=== PATIENT | male | born 1955 ===

== ENCOUNTER 2024-01-22 10:08 | Day surgery (SDC) | payer MEDICARE, OTHER ==
[~2024-01-22] VITALS: Ht 152.4 cm; Wt 51.2 kg
[~2024-01-22 10:08] MED LIST: Aspir 8181 MG; Balanced Salt Epinephrine Irrigation Solution 500 mL IR SCH; CYAN500 PO; HYDROCHLOROTHIAZIDE; LATANOPROST2.5 M3; LOSA50 PO; LOSARTAN; Lidocaine HCl/Pf 1% 5 ML VIAL XX SCH; METO100ER PO; Moxifloxacin HCL 0.5 MG/0.1 ML 0.4MLSYR RIGHTEYE SCH; NS 500 ML IV ONE; PHENYLEPHRINE\\TROPICAMIDE\\TETRACAINE OPHTHALMIC DILATING SOLN RIGHTEYE PRN; Povidone-Iodine 450 DROP/30 ML Solution RIGHTEYE SCH; ROSUVASTATIN CA20 MG PO
[2024-01-22] MEDS ORDERED: FentaNYL Citrate 50 MCG/ML 2 ML Injection ONE (10:10)
[2024-01-22] MEDS ORDERED: Midazolam HCl 1MG / ML 2ML Vial ONE (10:10)
[2024-01-22] MEDS ORDERED: NS 500 ML IV ONE (10:41)
--- NOTE | 2024-01-22 10:41 | NUR ---
01/22/24 1041 Juanita Dejesus AT 1033 PLEET 1033
[2024-01-22 11:39] VITALS: BP 125/65
== END 2024-01-22 11:55 | disposition home or self-care (01) ==
LOC: ORSCSDS 10:08
PROVIDERS: Student in an Organized Health Care Education/Training Program
PROC: 08RJ3JZ Replacement of Right Lens with Synthetic Substitute, Percutaneous Approach (ICD-10-PCS; principal; 2024-01-22 11:30)
DX: H25.811 Combined forms of age-related cataract, right eye (principal); Z96.1 Presence of intraocular lens; I10 Essential (primary) hypertension; Z87.891 Personal history of nicotine dependence; Z79.82 Long term (current) use of aspirin; Z79.899 Other long term (current) drug therapy
CPT/HCPCS: J2250; J3010; J7040; V2632